=== PATIENT | female | born 1945 | race Caucasian/White ===

== ENCOUNTER 2019-01-28 00:05 | Emergency (ER) | payer MEDICARE ==
[~2019-01-28] VITALS: Ht 157.5 cm; Wt 87.5 kg
--- NOTE | 2019-01-28 00:47 | NUR ---
Dr. Styles at bedside for MSE.
--- NOTE | 2019-01-28 01:37 | NUR ---
Ultrasound at bedside.
[2019-01-28] MEDS ORDERED: OXYCODONE/APAP 5-325 MG TABLET ONE ×2 (02:09→02:17)
[2019-01-28] MEDS ORDERED: OXYCODONE/APAP 5-325 MG TABLET PO ONE ×2 (02:15)
--- NOTE | 2019-01-28 02:27 | NUR ---
Patient discharged to home in stable conditon. Written and verbal after care instructions given. Patient verbalizes understanding of instructions. Pt out of ER via wheelchair, assisted patient on transfer to car, no falls noted, no acute signs of distress, VSS, all belongings taken.
[2019-01-28 02:28] VITALS: BP 135/64
== END 2019-01-28 02:29 | disposition home or self-care (01) ==
LOC: ER 00:10
DX: M79.605 Pain in left leg (principal)
CPT/HCPCS: A4663